=== PATIENT | male | born 1960 | race Two or more races ===

== ENCOUNTER 2017-05-16 12:22 | Emergency (ER) | payer OTHER ==
[2017-05-16 13:07] VITALS: BMI 22.6
--- NOTE | 2017-05-16 14:28 | PDOC ---
History of Present Illness - General Chief Complaint: Injury Stated Complaint: FOOT INJURY Time Seen by Provider: 05/16/17 14:26 History Source: Patient Exam Limitations: No Limitations - History of Present Illness Initial Comments: 05/16/17 14:26 crush injury to right foot from heavy bundle of sheetrock fall onto foot . Unable to Bear weight 05/16/17 14:40 Occurred: reports: just prior to arrival, this afternoon Severity: reports: moderate Pain Location: reports: lower extremity (riught foot ) Method of Injury: Yes: direct blow Modifying Factors: improves with: None Past History - Travel Traveled outside of the country in the last 30 days: No Close contact w/someone who was outside of country & ill: No - Past Medical History Allergies/Adverse Reactions: Allergies Allergy/AdvReac Type Severity Reaction Status Date / Time No Known Allergies Allergy Verified 05/16/17 13:07 Home Medications: Ambulatory Orders NK [No Known Home Medication] 05/16/17 Other medical history: denies - Suicide/Smoking/Psychosocial Hx Smoking History: Current every day smoker Number of Cigarettes Smoked Daily: 5 Information on smoking cessation initiated: No Hx Alcohol Use: No Drug/Substance Use Hx: No Substance Use Type: None Trauma Specific PMHX - Complaint Specific PMHX Back Injury: No Neck Injury: No Review of Systems - Review of Systems Able to Perform ROS?: Yes Is the patient limited [place]ian proficient: Yes Constitutional: Yes: See HPI. No: Symptoms Reported, Malaise HEENTM: Yes: See HPI. No: Symptoms Reported Musculoskeletal: Yes: Symptoms Reported, See HPI Neurological: Yes: See HPI. No: Symptoms reported All Other Systems: Reviewed and Negative *Physical Exam - Vital Signs Last Vital Signs Temp Pulse Resp BP Pulse Ox 98.2 F 75 18 119/68 100 05/16/17 13:01 05/16/17 13:01 05/16/17 13:01 05/16/17 13:01 05/16/17 13:01 - Physical Exam General Appearance: Yes: Nourished, Appropriately Dressed, Apparent Distress HEENT: positive: LEAH, Normal ENT Inspection, TMs Normal, Pharynx Normal Neck: positive: Supple. negative: Tender Respiratory/Chest: positive: Lungs Clear Extremity: positive: Other (severe swelling, ecchymoses and tenderness to. Sensation is diminished to toes but able to move them and has sensation to touch. Unable to palpate for pulses as patient has significant swelling and tenderness. Capillary refill is approximately 2 seconds). 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 Pending discussion from Orth O. Patient medicated with morphine 4 mg IM. Moved to room 7, patient and family updated to plan, Dr. Martínez and exam, RN given turnover *DC/Admit/Observation/Transfer Diagnosis at time of Disposition: Lisfranc's dislocation Qualifiers: Encounter type: initial encounter Laterality: right Qualified Code(s): S93.324A - Dislocation of tarsometatarsal joint of right foot, initial encounter - Discharge Dispostion Disposition: TRANSFER ACUTE CARE/OTHER HOSP Condition at time of disposition: Stable Admit: No
[2017-05-16] MEDS ORDERED: morphine CARPU-JECT 2 MG/1 ML DISP.SYRIN IM ONE (14:39)
[2017-05-16] MEDS ORDERED: morphine CARPU-JECT 2 MG/1 ML DISP.SYRIN ONE (14:43)
--- NOTE | 2017-05-16 15:21 | PDOC ---
*Physical Exam - Vital Signs Last Vital Signs Temp Pulse Resp BP Pulse Ox 98.2 F 75 18 119/68 100 05/16/17 13:01 05/16/17 13:01 05/16/17 13:01 05/16/17 13:01 05/16/17 13:01 <ChiMoiramiracle - Last Filed: 05/16/17 16:33> - Vital Signs Last Vital Signs Temp Pulse Resp BP Pulse Ox 98.2 F 75 18 119/68 100 05/16/17 13:01 05/16/17 13:01 05/16/17 13:01 05/16/17 13:01 05/16/17 13:01 - Physical Exam General Appearance: Yes: Nourished, Appropriately Dressed Neck: positive: Trachea midline Respiratory/Chest: positive: Lungs Clear, Normal Breath Sounds Cardiovascular: positive: Regular Rhythm, Regular Rate, S1, S2. negative: Edema Gastrointestinal/Abdominal: positive: Normal Bowel Sounds, Flat, Soft. negative : Tender Musculoskeletal: positive: Normal Inspection. negative: CVA Tenderness Extremity: positive: Normal Capillary Refill, Tender, Other (right medial foot ttp. lat/ med mall nontender. 2 + dp/ pt pulses. ) <Antonella Michele - Last Filed: 05/16/17 16:52> Heart Score/ECG Review - ECG Intrepretation Comment:: 05/16/17 16:00 Vent Rate: 71 bpm IMPRESSION: Normal sinus rhythm. <Princess Mireles - Last Filed: 05/16/17 16:33> #1 General ECG Interpretation: Sinus Rhythm, Normal Rate (70), Normal Intervals, No acute ischemic changes <Antonella Michele - Last Filed: 05/16/17 16:52> ED Treatment Course - LABORATORY CBC & Chemistry Diagram: 05/16/17 15:40 05/16/17 15:40 - ADDITIONAL ORDERS Additional order review: 05/16/17 15:40 RBC 4.67 MCV 85.2 MCHC 34.0 RDW 15.5 MPV 8.3 Neutrophils % 82.6 Lymphocytes % 10.6 Monocytes % 4.4 Eosinophils % 1.7 Basophils % 0.7 - RADIOLOGY Radiograph Interpretation: 05/16/17 16:33 EXAM: XR right ankle and foot. INTERPRETED BY: Dr. Santana REVIEWED BY: Dr. Michele IMPRESSION: Lisfranc fracture dislocation of the tarsometatarsal joints. - Medications Given in the ED: ED Medications Discontinued Medications Generic Name Dose Route Start Last Admin Trade Name Freq PRN Reason Stop Dose Admin Morphine Sulfate 4 mg 05/16/17 14:39 05/16/17 14:51 Morphine Injection - IM 05/16/17 14:40 4 mg ONCE ONE Administration <Princess Mireles - Last Filed: 05/16/17 16:33> - LABORATORY CBC & Chemistry Diagram: 05/16/17 15:40 05/16/17 15:40 - Medications Given in the ED: ED Medications Discontinued Medications Generic Name Dose Route Start Last Admin Trade Name Freq PRN Reason Stop Dose Admin Morphine Sulfate 4 mg 05/16/17 14:39 05/16/17 14:51 Morphine Injection - IM 05/16/17 14:40 4 mg ONCE ONE Administration <Antonella Michele - Last Filed: 05/16/17 16:52> Medical Decision Making - Medical Decision Making 05/16/17 15:23 57 yo male with no pmhx here s/p injury to right foot while at work. dropped a metal object on foot. unable to walk due to pain. employement took him to clinic to be evaluated, then to ed. c/o right severe foot pain. no knee or hip painl. no other injuries. 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 on exam medial right foot ttp. xray concerning for lis franc fracture. pt seen and examined in conjunction with Mirna Peguero. will require transfer to another center / higher level of care for definitive care. f 05/16/17 16:14 05/16/17 16:51 d/w [facility] transfer center, and orthopedic resident Paul Limon, will accept on behalf of Dr. Magallanes ( orthopedics). will arrange for transfer. d/w Dr Ashley who accepted to emergency department. <Antonella Michele - Last Filed: 05/16/17 16:52> *DC/Admit/Observation/Transfer - Attestations Scribe Attestion: 05/16/17 16:01 Documentation prepared by Princess Mireles, acting as medical records administrator for Antonella Michele MD. <Princess Mireles - Last Filed: 05/16/17 16:33> <Antonella Michele - Last Filed: 05/16/17 16:52> Diagnosis at time of Disposition: Lisfranc's dislocation - Discharge Dispostion Disposition: TRANSFER ACUTE CARE/OTHER HOSP
[2017-05-16] MEDS ORDERED: morphine CARPU-JECT 4 MG/1 ML DISP.SYRIN ONE ×2 (15:43→17:28)
[2017-05-16 15:45] LABS: BASOPHIL 0.7 % (0-2.0); EOSINOPHIL 1.7 % (0-4.5); MEAN CELL VOLUME 85.2 fl (80-96); MEAN PLT VOLUME 8.3 fl (7.5-11.1); NEUTROPHILS 82.6 % (42.8-82.8); PLATELET COUNT 357 K/MM3 (134-434); RDW 15.5 % (11.9-15.9); WHITE BLOOD COUNT 15.4 K/mm3 (4.0-10.0)
[2017-05-16 16:06] LABS: INR 1.08 (0.82-1.09); PROTHROMBIN TIME (PATIENT) 11.9 SEC (9.98-11.88)
[2017-05-16 16:08] LABS: ACTIVATED PTT 28.2 SECONDS (26.9-34.4)
[2017-05-16 16:13] LABS: ALBUMIN 3.4 g/dl (3.4-5.0); ANION GAP 5 (8-16); BILIRUBIN,TOTAL 0.4 mg/dL (0.2-1.0); CALCIUM 8.7 mg/dL (8.5-10.1); CO2 26 mmol/L (21-32); CREATININE 0.6 mg/dL (0.7-1.3); GLUCOSE,RANDOM 97 mg/dL (74-106); SGOT/AST 22 U/L (15-37); SGPT/ALT 23 U/L (12-78); TOT PROT 7.7 g/dl (6.4-8.2)
[2017-05-16 16:14] LABS: ALK PHOS 94 U/L (45-117); CPK 208 IU/L (39-308)
[2017-05-16] MEDS ORDERED: morphine CARPU-JECT 4 MG/1 ML DISP.SYRIN IVPUSH ONE (17:10)
[2017-05-16 18:26] VITALS: BP 128/80; PULSE 72; TEMP 98
--- NOTE | 2017-05-20 20:15 | EKG ---
Test Reason : Blood Pressure : / mmHG Vent. Rate : 071 BPM Atrial Rate : 071 BPM P-R Int : 136 ms QRS Dur : 076 ms QT Int : 384 ms P-R-T Axes : 050 041 026 degrees QTc Int : 417 ms NORMAL SINUS RHYTHM PROBABLE ATRIAL ABNORMALITY NO PREVIOUS ECGS AVAILABLE BASELINE ARTIFACT REPEAT EKG IF CLINICALLY INDICATED Confirmed by DEEJAY GUERRERO MD ([id number]) on 05/20/2017 8:15:08 PM Referred By: Confirmed By:DEEJAY GUERRERO MD
== END 2017-05-16 18:47 | disposition short-term general hospital (02) ==
LOC: JERFT 12:22 → JER 12:22
PROC: 3E033NZ Introduction of Analgesics, Hypnotics, Sedatives into Peripheral Vein, Percutaneous Approach (ICD-10-PCS; principal; 2017-05-16)
DX: S93.324A Dislocation of tarsometatarsal joint of right foot, initial encounter (principal); W20.8XXA Other cause of strike by thrown, projected or falling object, initial encounter; Y93.89 Activity, other specified; Y92.9 Unspecified place or not applicable; Y99.0 Civilian activity done for income or pay; F17.210 Nicotine dependence, cigarettes, uncomplicated
CPT/HCPCS: 36415; 73610-TC-RT; 73630-TC-RT; 80053; 82553; 85025; 85610; 85730; 93005; 93010; 99283-25